=== PATIENT | male | born 1935 ===

== ENCOUNTER → 2024-08-25 10:43 | Outpatient (BNVA) | payer MEDICARE, OTHER, SELFPAY | PROVIDERS: PCP Internal Medicine; Referring Provider Internal Medicine; Visit Provider Nurse Practitioner Gerontology | DX: C61 Malignant neoplasm of prostate (principal); R39.9 Unspecified symptoms and signs involving the genitourinary system; R60.0 Localized edema | CPT/HCPCS: 36415; 51798; 84153; 99205 ==

== ENCOUNTER 2024-08-25 12:24 | Outpatient (CLI) | payer MEDICARE, OTHER, SELFPAY ==
[2024-08-29 11:44] LABS: PSA, Ultrasensitive 0.31 ng/mL (<= 7.2)
== END 2024-08-25 12:25 | disposition home or self-care (01) ==
LOC: LBO 12:26
PROVIDERS: PCP Internal Medicine; Visit Provider Nurse Practitioner Gerontology
DX: C61 Malignant neoplasm of prostate (principal)
CPT/HCPCS: 36415; 84153

== ENCOUNTER → 2025-02-24 10:24 | Outpatient (BNVA) | payer MEDICARE, SELFPAY | PROVIDERS: PCP Internal Medicine; Referring Provider Internal Medicine; Visit Provider Nurse Practitioner Gerontology | DX: C61 Malignant neoplasm of prostate (principal) | CPT/HCPCS: 99213 ==